=== PATIENT | female | born 1980 | race Two or more races ===

== ENCOUNTER 2017-03-21 23:36 | Emergency (ER) | payer SELFPAY ==
--- NOTE | ~2017-03-21 | EKG ---
PATIENT: SOCORRO POTTS UNIT #: [id number] Ventricular Rate: 68 BPM Atrial Rate: 68 BPM P-R Interval: 134 ms QRS Duration: 88 ms Q-T Interval: 386 ms QTC Calculation(Bezet): 410 ms P [place]: 58 degrees Calculated R [place]: 76 degrees Calculated T [place]: 68 degrees Diagnosis Line: Normal sinus rhythm Diagnosis Line: Normal ECG Diagnosis Line: When compared with ECG of 22-JAN-2016 06:16, Diagnosis Line: No significant change was found Diagnosis Line: Confirmed by ALDAIR RUSH MD ([id number]) on 03/22/2017 Diagnosis Line: 7:09:29 PM INTERPRETING MD: ADRI SIMMS
--- NOTE | ~2017-03-21 | CR63 ---
[facility]. [facility] A Service of [facility] RADIOLOGY TEXT RESULTS PATIENT: SOCORRO POTTS LOCATION: SED : 80 UNIT #: [id number] AGE: [address]: Eugenio Richmond MD SEX: F ORDER DR: [id number] [place] [address] [id number] E MR#: [id number] Acc #: [id number] NAME: SOCORRO POTTS : 1980 SEX: F STUDY DATE/TIME: 03/22/2017 1:09 UNIT: SED ROOM: STUDY DESCRIPTION: CR Chest 2 View Attending Physician: Eugenio Richmond M.D. Ordering Physician: Eugenio Richmond M.D. MEDICAL IMAGING REPORT This report is preliminary unless electronic signature is present. EXAM Chest x-ray, 03/22/2017 HISTORY 36-year-old female in the ED complaining of 10-day history of chest pain, sore throat, back pain. TECHNIQUE PA and lateral upright chest series. FINDINGS The examination is negative. The lungs are expanded and clear. Heart size and pulmonary vascularity are normal. No change since 01/22/2016. IMPRESSION No active disease. No change since 01/22/2016. Dictated by... Jerrod Choudhury M.D. THIS IS AN ELECTRONICALLY VERIFIED REPORT Jerrod Choudhury M.D. at 03/22/2017 6:06 AM ADDISON/carlos TD: 03/22/2017 02:16 JOB #: [id number] MEDICAL IMAGING REPORT Page 1 of 1
[~2017-03-21 23:36] MED LIST: NO MEDICATIONS
[2017-03-22 00:28] LABS: BASOPHIL# 0.1 X10e3 (0-0.3); BASOPHIL% 0.8 % (0-2.5); EOSINOPHIL# 0.1 X10e3 (0-0.7); EOSINOPHIL% 1.9 % (0.0-7.0); HEMATOCRIT 32.9 % (35.0-45.0); HEMOGLOBIN 10.9 gm/dL (12.0-16.0); LYMPHOCYTE# 3.2 X10e3 (1.0-3.5); LYMPHOCYTE% 46.8 % (17.0-45.0); MEAN CELL VOLUME 86.5 FL (83-96); MEAN CORPUSCULAR HEMOGLOBIN 28.8 PG (28-34); MEAN CORPUSCULAR HGB CONC 33.2 g/dL (30-36); MEAN PLATELET VOLUME 9.2 FL (6.5-11.5); MONOCYTE# 0.8 X10e3 (0-1.0); MONOCYTE% 11.4 % (3.0-12.0); NEUTROPHIL# 2.7 X10e3 (1.5-7.1); NEUTROPHIL% 39.1 % (40-75); PLATELET COUNT 244 X10e3 (140-420); RED CELL DISTRIBUTION WIDTH 13.9 % (11.0-15.5); WHITE BLOOD COUNT 6.9 X10e3 (4.0-10.5)
[2017-03-22 00:29] LABS: DIFF IND NO
[2017-03-22 00:41] LABS: URINE SOURCE CLEAN CATCH
[2017-03-22 00:43] LABS: URINE APPEARANCE CLEAR; URINE BILIRUBIN NEG (NEG); URINE BLOOD NEG (NEG); URINE COLOR YELLOW; URINE GLUCOSE NEG (NORM); URINE KETONE NEG (NEG); URINE LEUKOCYTE ESTERASE NEG (NEG); URINE NITRATE NEG (NEG); URINE PROTEIN NEG (NEG); URINE SPECIFIC GRAVITY >=1.030 (1.003-1.035); URINE UROBILINOGEN 0.2 MG/DL (NORM)
[2017-03-22 00:45] LABS: MICRO INDICATED? NO
[2017-03-22 00:49] LABS: ALBUMIN SERUM 4.1 g/dL (3.5-5.0); BILIRUBIN, DIRECT 0.1 mg/dL (0.0-0.2); BILIRUBIN,INDIRECT 0.2 mg/dL (0.0-0.9); BILIRUBIN,TOTAL 0.3 mg/dL (0.2-2.0); BUN/CREATININE RATIO 25.71; CALCIUM SERUM 8.9 mg/dL (8.4-10.2); CREATININE SERUM 0.7 mg/dL (0.6-1.4); GLOM FILT RATE Estimated 111.5 mL/min (>60); POTASSIUM 3.7 mmol/L (3.5-5.1); PROTEIN TOTAL SERUM 7.1 g/dL (6.0-8.3)
[2017-03-22 01:04] LABS: POC - CKMB <1.0 ng/mL (0.0-7.9); POC - TROPONIN <0.05 ng/mL (<=0.05)
== END 2017-03-22 02:06 | disposition home or self-care (01) ==
LOC: SED 23:36
PROVIDERS: Emergency Medicine
DX: R07.9 Chest pain, unspecified (principal); K21.9 Gastro-esophageal reflux disease without esophagitis
CPT/HCPCS: 36415; 71020; 80048; 80076; 81003; 82553; 83690; 84484; 84703; 85025; 93005; 96374; 99283